=== PATIENT | male | born 1950 | race Caucasian/White ===

== ENCOUNTER → 2018-04-27 | Day surgery (SDC) | payer MEDICARE, OTHER ==
[2018-04-27] MEDS: Lactated Ringers 1,000 ML IV SCH (07:37)
[2018-04-27] MEDS: Benzocaine 20% Oral Spray 59.2 ML Canister MUCMEM ONE (08:10)
[2018-04-27] MEDS: Meperidine PF 25 MG/ML Syringe IV ONE (08:13)
[2018-04-27] MEDS: Midazolam 1 MG/ML 2 ML SDV IV ONE (08:14)
[2018-04-27 09:16] VITALS: BP 118/68
--- NOTE | 2018-04-27 13:30 | OR ---
DATE OF OPERATION: 04/27/2018 PREOPERATIVE DIAGNOSIS: GASTROESOPHAGEAL REFLUX DISEASE. POSTOPERATIVE DIAGNOSIS: 1. HIATAL HERNIA WITH REFLUX ESOPHAGITIS. 2. ORTEGA'S ESOPHAGUS. 3. MILD DUODENITIS. SURGEON: Leland Diaz MD PROCEDURE: EGD WITH BIOPSIES X4, DORY. ANESTHESIA: Conscious sedation via 25 mg of fentanyl, 4 mg of Versed with continuous O2 sat monitoring and nurse assist, O2 sats remained above 90 for entire procedure. COMPLICATIONS: None. SPECIMEN: 1. Duodenal bulb biopsy x1. 2. Distal esophageal biopsy x3. 3. Antral DORY. FINDINGS: 1. Full-length EGD. 2. Mild duodenitis, duodenal bulb. 3. Mild hiatal hernia with spontaneous GERD. 4. Minimal reflux esophagitis. 5. Ortega's esophagus. RECOMMENDATIONS: The patient to initiate proton pump therapy and have close followup with Dr. Goetz for biopsy reports. Ortega's surveillance appropriately pending these reports. The patient to consider hiatal hernia repair. INDICATIONS: The patient has apparently been having some ongoing substernal burning and reflux symptoms. Dr. Goetz sent him for his first EGD. DESCRIPTION OF PROCEDURE: The patient was prepped and draped, placed in the left lateral decubitus position. A lubricated Olympus gastroscope inserted over bit, advanced to the cricopharyngeus area, and with patient swallow, intubated into the esophagus. The esophageal lining was benign for most of its course. The Z-line was crisp around 36.5 cm. There was a hiatal hernia present, mild in size with spontaneous reflux visualized with a few focal areas of esophagitis without any ulceration. There was a large segment Ortega's area as well. Quite broad and expanded up at least 2-3 cm. Two biopsies of the leading edge of that area were taken along with one of the area of esophagitis. The scope was advanced into the stomach through the pylorus into the second portion of the duodenum. This part of the duodenum was benign. The duodenal bulb had some very mild duodenitis without any ulceration or erosion. Biopsy was taken. The scope was brought back into the stomach and retroflexed. A small hiatal hernia was easily seen from below. The upper fundus and cardia were unremarkable. Upon straightening, found no signs of any polyps, masses, ulcerations, or active peptic ulcer disease in the stomach. I did do a CLOtest. Air was then suctioned, then the scope was removed without complication. MARY/RERE /[id number] cc: Aiden Goetz MD [address] [place] [id number]
== END ==
LOC: CC.SDS 07:23
PROVIDERS: ATTEND Family Medicine
DX: K21.0 Gastro-esophageal reflux disease with esophagitis (principal); K29.80 Duodenitis without bleeding; K22.70 Barrett's esophagus without dysplasia; K44.9 Diaphragmatic hernia without obstruction or gangrene; E78.00 Pure hypercholesterolemia, unspecified; N40.1 Benign prostatic hyperplasia with lower urinary tract symptoms; R35.1 Nocturia; M06.9 Rheumatoid arthritis, unspecified; E55.9 Vitamin D deficiency, unspecified; Z87.891 Personal history of nicotine dependence; Z79.82 Long term (current) use of aspirin; Z79.899 Other long term (current) drug therapy
CPT/HCPCS: 87081; J2175; J2250; J7120

== ENCOUNTER 2018-08-04 15:21 | Emergency (ER) | payer MEDICARE, OTHER ==
[2018-08-04] MEDS ORDERED: Lidocaine 1% 20 ML MDV INJECT ONE (15:27)
[2018-08-04 15:32] VITALS: BP 148/85
[2018-08-04] MEDS ORDERED: Bacitracin/Neomycin/Polymyxin B Oint 0.9 GM U/D Packet ONE (15:38)
[2018-08-04] MEDS ORDERED: Bacitracin/Neomycin/Polymyxin B Oint 0.9 GM U/D Packet TOP ONE (15:48)
--- NOTE | 2018-08-04 16:05 | EDM.PDOC ---
ED HPI GENERAL MEDICAL PROBLEM - General Chief Complaint: Laceration Stated Complaint: laceration Time Seen by Provider: 08/04/18 15:23 - History of Present Illness INITIAL COMMENTS - FREE TEXT/NARRATIVE: Lex is a 67 year old male who presents to the ED with c/o laceration to nail bed on his right index finger. Reports he was cutting wood using a table saw, when it slipped and got his finger. Denies any pain. Full ROM to finger. CMS intact. Onset: Today, Sudden Location: Reports: Upper Extremity, Right Improves with: Reports: None Worsens with: Reports: None Associated Symptoms: Reports: No Other Symptoms - Related Data Allergies Allergy/AdvReac Type Severity Reaction Status Date / Time No Known Allergies Allergy Verified 08/04/18 15:32 Home Meds: Home Meds Rosuvastatin [Crestor] 10 mg PO DAILY 03/02/13 [History] Aspirin [Ecotrin] 325 mg PO DAILY 03/27/13 [History] Cholecalciferol (Vitamin D3) [Vitamin D3] 2,000 unit PO DAILY 03/27/13 [History] Multivitamin [Multivitamins] 1 each PO DAILY 03/27/13 [History] Ranitidine [Zantac] 75 mg PO DAILY PRN 03/27/13 [History] Ibuprofen [Advil] 200 mg PO Q4HR PRN 04/03/14 [History] Calcium Carbonate/Vitamin D3 [Calcium 600-Vit D3 800 Tab] 1 each PO DAILY [History] Naproxen Sodium 220 mg PO DAILY PRN 04/26/18 [History] Past Medical History - Past Surgical History GI Surgical History: Reports: Cholecystectomy Neurological Surgical History: Reports: C-Spine Social & Family History - Tobacco Use Smoking Status *Q: Never Smoker ED ROS GENERAL - Review of Systems Review Of Systems: ROS reveals no pertinent complaints other than HPI. ED EXAM, SKIN/RASH Exam: See Below Exam Limited By: No Limitations General Appearance: Alert, WD/WN, No Apparent Distress Peripheral Pulses: 2+: Radial (R) Extremities: Normal Range of Motion, Normal Capillary Refill, Other (distal aspect of right index finger nail bed macerated, measures ~ 1 cm x 1 cm) Course - Vital Signs Last Recorded V/S: Last Vital Signs Temp 98.4 F 08/04/18 15:23 Pulse 80 08/04/18 15:23 Resp 20 08/04/18 15:23 BP 148/85 H 08/04/18 15:23 Pulse Ox 98 08/04/18 15:23 - Orders/Labs/Meds Meds: Medications Discontinued Medications Generic Name Dose Route Start Last Admin Trade Name Gabriele PRN Reason Stop Dose Admin Lidocaine HCl 20 ml 08/04/18 15:27 08/04/18 15:49 Xylocaine 1% INJECT 08/04/18 15:28 20 ml ONETIME ONE Administration Neomycin/Polymyxin/Bacitracin 3 each 08/04/18 15:48 08/04/18 15:52 Triple Antibiotic Oint TOP 08/04/18 15:49 3 each ONETIME ONE Administration Neomycin/Polymyxin/Bacitracin Confirm 08/04/18 15:38 Triple Antibiotic Oint Administered 08/04/18 15:39 Dose 3 each .ROUTE .ST-MED ONE - Re-Assessments/Exams Free Text/Narrative Re-Assessment/Exam: 08/04/18 15:50 Attempted to suture flap of distal right index finger down, but unable to due to inadequate tissue. 4 mm flap of skin debrided and area covered with DONNA, nonadeherent gauze, and kerlix. Departure - Departure Time of Disposition: 16:00 Disposition: Home, Self-Care 01 Condition: Good Clinical Impression: Laceration of finger nail bed Qualifiers: Encounter type: initial encounter Qualified Code(s): S61.319A - Laceration without foreign body of unspecified finger with damage to nail, initial encounter - Discharge Information *PRESCRIPTION DRUG MONITORING PROGRAM REVIEWED*: Not Applicable *COPY OF PRESCRIPTION DRUG MONITORING REPORT IN PATIENT HERMINIA: Not Applicable Instructions: Wound Care, Adult Additional Instructions: 1) Keep area clean and dry. Cover and apply triple antibiotic ointment daily until well healed. 2) Tylenol or ibuprofen as needed for pain 3) Monitor for s/s of infection (warmth, drainage, redness) and notify clinic of any concerns 4) Follow up as needed
== END 2018-08-04 16:10 | disposition home or self-care (01) ==
LOC: CC.ED 15:21
DX: S61.310A Laceration without foreign body of right index finger with damage to nail, initial encounter (principal); Z79.899 Other long term (current) drug therapy; Z79.82 Long term (current) use of aspirin; W27.0XXA Contact with workbench tool, initial encounter
CPT/HCPCS: 11042; 99282; 99283; J2001

== ENCOUNTER → 2020-05-08 | Day surgery (SDC) | payer MEDICARE, OTHER ==
[~2020-05-08] MED LIST: Ketamine 200 MG/20 ML MDV ONE; Lactated Ringers 1,000 ML IV SCH; Propofol 200 MG/20 ML SDV ONE; fentaNYL 100 MCG/2 ML SDV ONE
--- NOTE | 2020-05-08 11:54 | OR ---
DATE OF OPERATION: 05/08/2020 PREOPERATIVE DIAGNOSIS: HISTORY OF POLYPS. POSTOPERATIVE DIAGNOSIS: HISTORY OF POLYPS. SURGEON: Leland Diaz MD PROCEDURE: FULL-LENGTH DIAGNOSTIC COLONOSCOPY. ANESTHESIA: MAC. COMPLICATIONS: None. SPECIMEN: None. FINDINGS: 1. Full-length colonoscopy. 2. Moderate sigmoid diverticulosis. RECOMMENDATIONS: Followup colonoscopy in 7 to 8 years. INDICATIONS: The patient has a history of polyps removed approximately [address] Goetz sent him for a surveillance scope. DESCRIPTION OF PROCEDURE: The patient was prepped and draped, placed in the left lateral decubitus position. A lubricated Olympus colonoscope was inserted and easily advanced to the cecum. Direct visualization of the ileocecal valve and appendiceal orifice was accomplished. The bowel prep was excellent. Upon withdrawal the scope throughout the entire length of the colon, I could find no signs of any polyps, masses, ulceration, or bleeding sites. No vascular abnormalities or signs of colitis. The patient does have moderate diverticulosis of the sigmoid and rectosigmoid regions. Rectal vault was benign. Retroflexion showed no perianal lesions. Air was suctioned, scope removed without complication. MARY/RERE /[id number]
[2020-05-08 12:12] VITALS: BP 136/80; PULSE 87
== END ==
LOC: CC.SDS 09:35
PROVIDERS: ATTEND Family Medicine
DX: Z12.11 Encounter for screening for malignant neoplasm of colon (principal); K57.30 Diverticulosis of large intestine without perforation or abscess without bleeding; E78.5 Hyperlipidemia, unspecified; K21.9 Gastro-esophageal reflux disease without esophagitis; M06.9 Rheumatoid arthritis, unspecified; E55.9 Vitamin D deficiency, unspecified; M19.021 Primary osteoarthritis, right elbow; E66.9 Obesity, unspecified; Z86.010 Personal history of colon polyps; Z87.891 Personal history of nicotine dependence; Z01.812 Encounter for preprocedural laboratory examination; Z20.822 Contact with and (suspected) exposure to COVID-19; Z79.899 Other long term (current) drug therapy; Z79.82 Long term (current) use of aspirin; Z90.49 Acquired absence of other specified parts of digestive tract; Z98.890 Other specified postprocedural states; Z79.1 Long term (current) use of non-steroidal anti-inflammatories (NSAID); Z68.30 Body mass index [BMI] 30.0-30.9, adult
CPT/HCPCS: G0105; J2704; J3010; J7120; 45378